=== PATIENT | female | born 1985 ===

== ENCOUNTER 2022-09-06 05:03 | Day surgery (SDC) | payer OTHER ==
[2022-09-04 09:55] VITALS: BMI 38.8
[2022-09-06] MEDS ORDERED: MIDAZOLAM HCL 2 MG/2 ML SINGLE DOSE VIAL ONE (13:51)
[2022-09-06] MEDS ORDERED: ceFAZolin SODIUM 1 GM VIAL IVPB ONE (14:05)
[2022-09-06] MEDS ORDERED: ONDANSETRON 4 MG/2 ML VIAL ONE (14:10)
[2022-09-06] MEDS ORDERED: ceFAZolin SODIUM 1 GM VIAL ONE (14:10)
[2022-09-06] MEDS ORDERED: DEXAMETHASONE SOD PHOSPHATE 4 MG/1 ML VIAL ONE (14:10)
[2022-09-06] MEDS ORDERED: KETOROLAC TROMETHAMINE 30 MG/1 ML VIAL ONE (14:10)
[2022-09-06] MEDS ORDERED: ONDANSETRON 4 MG/2 ML VIAL IVPUSH PRN (15:23)
[2022-09-06] MEDS ORDERED: ACETAMINOPHEN 1000 MG/100 ML BAG IVPB ONE ×2 (15:24→15:30)
[2022-09-06] MEDS ORDERED: ACETAMINOPHEN INJECTION 100 ML IVPB ONE (15:25)
[2022-09-06] MEDS ORDERED: LACTATED RINGERS SOLUTION 1,000 ML IV SCH (15:30)
[2022-09-06 18:13] VITALS: RESP 20; TEMP 97.1
[2022-09-06 19:45] VITALS: BP 111/71; PULSE 65
== END 2022-09-06 19:45 | disposition home or self-care (01) ==
LOC: JASU-SURG 05:03
PROVIDERS: ATTEND Obstetrics & Gynecology
PROC: 0UDB8ZX Extraction of Endometrium, Via Natural or Artificial Opening Endoscopic, Diagnostic (ICD-10-PCS; principal; 2022-09-06 14:00)
DX: N93.9 Abnormal uterine and vaginal bleeding, unspecified (principal)
CPT/HCPCS: 81025; 88305-TC; 94760